=== PATIENT | male | born 1990 | race Caucasian/White ===

== ENCOUNTER 2023-11-16 03:33 | Emergency (ER) | payer MEDICAID ==
[~2023-11-16] VITALS: Ht 177.8 cm; Wt 82.0 kg
[2023-11-16 03:38] VITALS: O2SAT 98
[2023-11-16] MEDS: SODIUM CHLORIDE 0.9% 1,000 ML IV ONE (04:45)
[2023-11-16] MEDS: LEVETIRACETAM 1000MG PREMIX 100 ML IV ONE (04:45)
[2023-11-16] MEDS ORDERED: KEPP500 MT (05:38)
[2023-11-16 11:43] VITALS: BP 132/82; PULSE 89; RESP 16; TEMP 97.8
== END 2023-11-16 11:43 | disposition home or self-care (01) ==
LOC: ER 03:36
DX: G40.909 Epilepsy, unspecified, not intractable, without status epilepticus (principal)
CPT/HCPCS: 82962; 96365; 96366; 99284; J1953; J7030; Z7610 ×2